=== PATIENT | female | born 1980 | race Caucasian/White ===

== ENCOUNTER → 2024-12-24 | Outpatient (REF) | payer OTHER | LOC: US 12:08 | PROVIDERS: ATTEND Nurse Practitioner Family | DX: R10.9 Unspecified abdominal pain (principal) | CPT/HCPCS: 76700; 76856 ==

== ENCOUNTER → 2025-03-12 | Day surgery (SDC) | payer OTHER ==
[~2025-03-12] MED LIST: BUSPIRONE HCL10 MG PO; FLUOXETINE HCL20 M1 PO; HYDROXYZINE HCL25 MG PO; LIDOCAINE HCL 1% 2 ML AMP ONE; LIDOCAINE HCL 2% LOCAL INJ 5 ML SDV VIAL INJ ONE; MIDAZOLAM HCL 2 MG/2 ML VIAL ONE; ONDANSETRON ODT8 MG PO; PANTOPRAZOLE SO40 MG PO; PHENYLEPHRINE HCL 1% 10 MG/ML VIAL ONE; PROPOFOL IV EMULSION 10 MG/ML 20 ML VIAL ONE; SODIUM CHLORIDE 0.9% 100 ML ONE; TRAZODONE HCL50 MG PO; XIFAXAN550 MG PO
[2025-03-12 07:44] LABS: BASOPHILS # (AUTO) 0.1 (0.0-0.1); EOSINOPHILS # (AUTO) 0.3 (0.0-0.4); EOSINOPHILS % 3.9 % (0.0-6.0); HEMATOCRIT 43.6 % (34.2-44.1); HEMOGLOBIN 15.6 g/dL (12.0-16.0); LYMPHOCYTES # (AUTO) 1.9 (1.0-3.2); LYMPHOCYTES % 26.9 % (18.0-39.1); MEAN CORPUSCULAR HEMOGLOBIN 31.2 pg (28-32); MEAN CORPUSCULAR HGB CONC 35.8 g/dL (31-35); MEAN CORPUSCULAR VOLUME 87.2 fL (81-99); MONOCYTES # (AUTO) 0.4 (0.2-0.8); MONOCYTES % 6.3 % (4.4-11.3); NEUTROPHILS # (AUTO) 4.3 (2.1-6.9); NEUTROPHILS % 61.5 % (38.7-80.0); PLATELET COUNT 103 x10e3/uL (140-360); RED CELL DISTRIBUTION WIDTH 12.5 % (11.7-14.4); WHITE BLOOD COUNT 6.95 x10e3/uL (4.8-10.8)
[2025-03-12] MEDS: LACTATED RINGER'S 1,000 ML ONE (07:47)
[2025-03-12 07:59] LABS: INR 1.12; PROTHROMBIN TIME 15.1 seconds (11.9-14.5)
[2025-03-12 08:08] LABS: ALBUMIN 4.1 g/dL (3.5-5.0); ALBUMIN/GLOBULIN RATIO 1.1 (0.8-2.0); ANION GAP 14.1 mmol/L (8-16); BILIRUBIN,TOTAL 1.6 mg/dL (0.2-1.2); CREATININE, SERUM 0.68 mg/dL (0.57-1.11); POTASSIUM 4.1 mmol/L (3.5-5.1); TOTAL PROTEIN 7.7 g/dL (6.5-8.1)
[2025-03-12 10:05] VITALS: BP 126/74; PULSE 79; RESP 17; O2SAT 97
== END | disposition home or self-care (01) ==
LOC: OR 06:04
PROVIDERS: ATTEND Internal Medicine Gastroenterology
DX: Z12.11 Encounter for screening for malignant neoplasm of colon (principal); D12.2 Benign neoplasm of ascending colon; D12.3 Benign neoplasm of transverse colon; D12.4 Benign neoplasm of descending colon; K64.8 Other hemorrhoids; K74.60 Unspecified cirrhosis of liver; K21.9 Gastro-esophageal reflux disease without esophagitis; R76.8 Other specified abnormal immunological findings in serum; D64.9 Anemia, unspecified; R79.89 Other specified abnormal findings of blood chemistry; D69.6 Thrombocytopenia, unspecified; R93.5 Abnormal findings on diagnostic imaging of other abdominal regions, including retroperitoneum; R03.0 Elevated blood-pressure reading, without diagnosis of hypertension; B19.10 Unspecified viral hepatitis B without hepatic coma; F41.9 Anxiety disorder, unspecified; F31.9 Bipolar disorder, unspecified; Z88.0 Allergy status to penicillin; Z91.048 Other nonmedicinal substance allergy status; Z79.899 Other long term (current) drug therapy; Z87.891 Personal history of nicotine dependence; Z87.898 Personal history of other specified conditions
CPT/HCPCS: 36415; 45384; 45385; 80053; 85025; 85610; 85730; 93005; J2003 ×2; J2371; J2704; J7050; J7121; J2250